=== PATIENT | female | born 1955 | race Caucasian/White ===

== ENCOUNTER 2020-03-08 04:18 | Outpatient (CLI) | payer MEDICARE, SELFPAY ==
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
--- NOTE | 2020-03-08 09:46 | DI.RAD_ITS ---
EXAM: XR HIP RT COMPLETE AP PELVIS CLINICAL HISTORY: right hip pain,M25.551. TECHNIQUE: 2D digital imaging was performed. COMPARISON: No exams were available for comparison FINDINGS: BONES: The patient has a right total hip replacement. No lucencies are seen in or about the orthoped ic hardware. The distal aspect of the femoral stem is not included on this examination. Dystrophic calcifications are seen around the right hip. Note is also made of a left total hip replacement. Th e visualized components are unremarkable. No acute fracture or dislocation is seen. There are moder ate degenerative changes seen in the lower lumbar spine. JOINTS: Please see above. SOFT TISSUE: Normal. IMPRESSION: Bilateral total hip replacements. If there are prior films for comparison, they may be submitted for comparison and an addendum will be issued at that time. DATA REPOSITORY: RADIATION DOSE DELIVERED:
== END 2020-03-08 04:38 ==
PROVIDERS: Visit Provider Nurse Practitioner Family
DX: M25.551 Pain in right hip (principal); Z96.643 Presence of artificial hip joint, bilateral; M79.18 Myalgia, other site
CPT/HCPCS: 76857; 73502

== ENCOUNTER 2020-05-14 14:38 | Outpatient (REF) | payer OTHER, SELFPAY ==
[2020-05-14 22:14] LABS: Bilirubin Negative (Negative); Blood Negative (Negative); Clarity Clear (Clear); Glucose Negative (Negative); Ketones Negative (Negative); Leukocyte Esterase Small (Negative); Nitrite Negative (Negative); Specific Gravity >= 1.030 (1.005-1.025); Urobilinogen 0.2 EU/dL (Up TO 0.2); pH 5.5 (5-8)
[2020-05-14 22:22] LABS: Bacteria Few HPF (Negative); C & S Indicated? Yes; Casts Negative LPF (Negative); Crystals Rare Calcium Oxalate HPF (Negative); Epithelial Cells Few HPF (Negative); Mucus Negative (Negative); RBC Negative HPF (0-2)
== END 2020-05-14 14:58 ==
LOC: LBN 14:38
PROVIDERS: Visit Provider Emergency Medicine
DX: R10.9 Unspecified abdominal pain (principal)
CPT/HCPCS: 81003; 81015; 87086

== ENCOUNTER 2020-05-16 01:56 | Outpatient (CLI) | payer OTHER, SELFPAY ==
--- NOTE | 2020-05-16 11:08 | DI.CT_ITS ---
EXAM: CT RENAL COLIC WO CLINICAL HISTORY: right renal colic,n23. TECHNIQUE: Imaging Protocol: Axial computed tomography images with coronal and sagittal reformatted images were created and reviewed CONTRAST MATERIAL: Intravenous: none Oral: None COMPARISON: No exams were available for comparison FINDINGS: VISUALIZED LUNG BASES: No nodules nor pleural effusions evident. ABDOMEN: There is no ascites. LIVER: There is a partially included hypodensity in the left hepatic lobe which measures 2.6 cm x 2 c m and probably a cyst. No other focal hepatic lesions identified on this limited study. The entire liver is not included on this dedicated renal calculi protocol study. GALLBLADDER/BILIARY: No obvious gallbladder pathology. CBD is not dilated. PANCREAS: No evidence of pancreatic mass nor dilatation of the pancreatic duct. SPLEEN: Not enlarged ADRENALS: No significant adrenal masses KIDNEYS:No intrarenal calculi. No solid renal masses. Parapelvic cyst left kidney noted. No hydron ephrosis. No hydroureter of though the lower ureters and most of the urinary bladder obscured by thiago ateral hip prostheses.. ABDOMINAL AORTA: Abdominal aorta is not enlarged and there is no [id number] adenopat hy. ABDOMINAL WALL/GI: No evidence of significant anterior abdominal wall hernia. No bowel obstruction. PELVIS: LYMPH NODES: There is no intrapelvic nor inguinal adenopathy. GI: No evidence of appendicitis.No evidence of sigmoid diverticulitis. URINARY BLADDER: Partially obscured by artifact from bilateral hip prostheses. REPRODUCTIVE: Partially obscured by a hip prostheses beam hardening artifact. No obvious abnormal ad nexal masses. Uterus difficult to assess. OSSEOUS: Bilateral hip prostheses noted. Evidence of prior lumbar spine decompression surgery. No lytic osseous lesions identified. IMPRESSION: 1. No intrarenal calculi no hydronephrosis nor hydroureter. The lower most ureters and the urinary b ladder are difficult to assess because of beam hardening if artifact from the bilateral hip prosthese s evident. 2. Parapelvic cysts noted in the left kidney. No solid renal masses. 3. Benign cyst in the liver left hepatic lobe partially included in this study and measures 2.6 x 2.0 cm. RADIATION DOSE DELIVERED: 832.03mGy.cm Total DLP DATA REPOSITORY: All CT scans at this facility are submitted to the National Radiology Data Registry (NRDR) Dose Index Registry (DIR) with the [employer] ([employer]). RADIATION OPTIMIZATION: All CT scans at this facility use at least one of these dose optimization te chniques: automated exposure control; mA and/or kV adjustment per patient size (includes targeted exa ms where dose is matched to clinical indication); or iterative reconstruction.
== END 2020-05-16 02:16 ==
PROVIDERS: Visit Provider Emergency Medicine
DX: N23 Unspecified renal colic (principal); N28.1 Cyst of kidney, acquired; K76.89 Other specified diseases of liver
CPT/HCPCS: 74176

== ENCOUNTER 2021-05-15 02:40 | Outpatient (CLI) | payer MEDICARE, SELFPAY ==
--- NOTE | 2021-05-15 14:56 | DI.US_ITS ---
APPROVED REPORT EXAM: Comprehensive 2D, Doppler, and color-flow Echocardiogram Patient Location: Out-Patient Casing Grader: Karla Machado RDCS (AE) Indications: New systolic heart murmur, Preop Other Information Study Quality: Adequate Conclusion Normal left ventricular wall thickness and chamber size. Estimated ejection fraction is 60%. Wall m otion is normal Normal right ventricular size and systolic function Both atria are normal in size The aortic valve is sclerotic and trileaflet with mild regurgitation. There is no aortic stenosis Mild to moderate mitral annular calcification. Trace to mild mitral regurgitation Normal tricuspid valve with trace regurgitation. Estimated right ventricular systolic pressure is no rmal at 25 mmHg Wall motion Left Ventricle The left ventricle is normal size. The left ventricular systolic function is normal. The left ventric ular ejection fraction is within the normal range. Mild concentric left ventricular hypertrophy. Ther e is normal LV segmental wall motion. There is no ventricular septal defect visualized. LVEF is 60%. Right Ventricle The right ventricle is normal size. The right ventricular systolic function is normal. The RVSP is 25 .5mmHg. Atria The left atrium size is normal. The right atrium size is normal. The interatrial septum is intact wit h no evidence for an atrial septal defect. Aortic Valve The Aortic valve is sclerotic. Aortic valve is trileaflet. No hemodynamically significant valvular ao rtic stenosis. Mild aortic regurgitation. Mitral Valve Mild to moderate mitral annular calcification. No evidence of mitral valve stenosis. Trace to mild mi tral regurgitation. Tricuspid Valve The tricuspid valve is normal in structure. There is no tricuspid valve stenosis. Trace tricuspid reg urgitation. Pulmonic Valve The pulmonary valve is normal in structure. There is no pulmonic valvular stenosis. There is no pulmo ely valvular regurgitation. Great Vessels The aortic root is normal in size. The ascending aorta is normal in size. Aortic arch is normal in ca liber. IVC is normal in size and collapses >50% with inspiration. Pericardium There is no pericardial effusion. 2D Dimensions IVSD d PLAX 1.10 cm F: 0.6-1.0 LV Vol A2C d MOD 58.8 mL LVPW d PLAX 1.12 cm F: 0.6 - 1.0 LV Vol A4C d MOD 94.0 mL LVID d PLAX 4.25 cm F: 3.8 - 5.2 LA vol/ BSA A2C s A-L 27.7 mL/m2 LVDs 2.90 cm F: 2.2 - 3.5 LA vol/ BSA A4C s A-L 40.9 mL/m2 Ao Root d 2.45 cm F: 2.7 - 3.3 LA Vol/ BSA Biplane s A-L 33.8 mL/m2 RA Area A4C 12.03 cm2 LA Area A4C s MOD 22.27 cm2 RA Vol/ BSA A4C s A-L 14.8 mL/m2 LA Area A2C s MOD 18.39 cm2 Ao Asc Diam d 3.20 cm F: 2.3 - 3.1 LV EF A4C MOD 58.6 % LV EF Teichholz 59.8 % LV EF A2C MOD 59.3 % LVEF (Delaney's) 58.35 % F: 54 - 74 LV EF Biplane MOD 58.4 % LV Volume 59.11 mL F: 46 - 106 SV 44.76 mL LV Volume Index 32.12 mL/m2 F: 29 - 61 SV Index 24.22 mL/m2 LV Vol Biplane MOD 76.7 mL FS 31.55 % M-Mode TAPSE 2.57 cm (M/F) >1.7 LV Diastology MV E' medial 0.134 (>0.07 m/s) E/A Ratio 0.9 LV E/e MED 6.00 (<14) MV E Vmax 0.81 (0.4-1.3 m/s) MV E' lateral 0.094 (>0.1 m/s) MV A Vmax 0.90 (0.4-1.3 m/s) LV E/e LAT 8.55 (<14) MV E/A Ratio 0.88 MV E/E' medial 6.02 MV E/E' lateral 8.59 Aortic Valve LVOT Area 3.13 cm2 AoV Area Vmax 1.68 cm2 LVOT Vmax 1.24 m/s AoV Area/ BSA (Vmax) 0.91 cm2/m2 LVOT Mean Chris. 0.85 m/s GONZALEZ Mean Chris. 1.61 cm2 LVOT Peak Grad 6.2 mmHg GONZALEZ Mean Chris. Index 0.87 cm2/m2 LVOT Mean Grad 3.3 mmHg AR DT 1411 msec LVOT VTI 0.277 m AR PHT 409 msec LVOT Diam s 1.95 cm AoV Vmax 2.32 m/s Velocity Ratio 0.53 AoV Mean Chris. 1.66 m/s AoV Peak Grad 21.5 mmHg LVOT SV 86.75 mL AoV Mean Grad 12.4 mmHg AoV VTI 0.474 m AoV Area VTI 1.83 cm2 AoV Area/ BSA (VTI) 0.99 cm/m2 Mitral Valve MV DT 207 (160-240 msec) MV PHT 60 msec MV Area PHT 3.66 cm2 MV VTI 0.301 m MV Area VTI 2.88 (4.0-6.0 cm2) Pulmonary Valve PV Vmax 1.01 (0.5-1.5 m/s) RVOT Peak Gr. 1.51 mmHg PV Peak Grad 4.1 mmHg RVOT Mean Gr. 0.80 mmHg PV Mean Grad 2.1 mmHg RVOT VTI 0.132 m PV VTI 0.184 m RVOT Vmax 0.61 m/s Tricuspid Valve TR Peak Grad 22.4 mmHg TR Vmax 2.37 m/s RA Pressure 3.00 mmHg RVSP (TR) 25.5 mmHg
== END 2021-05-15 03:00 ==
PROVIDERS: PCP Family Medicine; Visit Provider Family Medicine
DX: Z01.818 Encounter for other preprocedural examination (principal); R01.1 Cardiac murmur, unspecified; I08.3 Combined rheumatic disorders of mitral, aortic and tricuspid valves
CPT/HCPCS: 93306

== ENCOUNTER 2022-06-03 15:09 | Outpatient (REF) | payer MEDICARE, SELFPAY ==
[2022-06-03 21:15] LABS: HCT 44.4 % (36.0-46.0); HGB 14.8 g/dL (11.2-15.7); MCH 31.7 pg (27.0-33.0); MCHC 33.3 % (32.0-36.0); MCV 95 fL (80-95); Platelet Count 260 10^3/uL (130-400); RBC 4.67 10^6/uL (3.93-5.22); RDW 12.1 % (11.7-14.6); RDW-SD 42.3 fL; WBC 6.73 10^3/uL (4.4-10.8)
[2022-06-03 21:38] LABS: ALT 30 U/L (14-59); AST 21 U/L (15-37); Alkaline Phosphatase 75 U/L (46-116); Anion Gap 8.6 mmol/L (3-11); BUN 15 mg/dL (7-18); Bilirubin, Total 0.4 mg/dL (0.2-1.0); CO2 27.4 mmol/L (21.0-32.0); CREATININE 0.7 mg/dL (0.55-1.02); Calcium 9.3 mg/dL (8.5-10.1); Calculated LDL 139 mg/dL (<100); Chloride 109 mmol/L (98-107); Cholesterol 230 mg/dL (<200); Estimated GFR 94.15 (mL/min/1.73m2); Glucose 99 mg/dL (74-106); HDL Cholesterol 62 mg/dL (40-60); Sodium 145 mmol/L (136-145); Total Protein 6.7 g/dL (6.4-8.2); Triglyceride 146 mg/dL (<150)
== END 2022-06-03 15:10 | disposition home or self-care (01) ==
LOC: NCHCN 15:09
PROVIDERS: Visit Provider Family Medicine
DX: R78.89 Finding of other specified substances, not normally found in blood (principal); I70.0 Atherosclerosis of aorta; K21.9 Gastro-esophageal reflux disease without esophagitis; M15.9 Polyosteoarthritis, unspecified
CPT/HCPCS: 80053; 80061; 85027

== ENCOUNTER 2022-07-13 14:01 | Outpatient (CLI) | payer MEDICARE, SELFPAY ==
--- NOTE | 2022-07-13 14:00 | RT.EKG_ITS ---
APPROVED REPORT Exam: Resting ECG Reason for Exam: chest discomfort Patient Location: O HR:74 bpm ECG Measurements Heart Rate 74 AXIS LA 148 P 62 QRSd 92 QRS 17 QT 394 T 34 QTc 438 Conclusion Sinus rhythm...normal P axis, V-rate 50- 99 Probable left atrial enlargement...P >50mS, <-0.10mV V1 Otherwise normal ECG
== END 2022-07-13 14:02 | disposition home or self-care (01) ==
LOC: DI.CM 14:02
PROVIDERS: Visit Provider Physician Assistant
DX: R07.89 Other chest pain (principal)
CPT/HCPCS: 93010

== ENCOUNTER 2022-07-13 14:34 | Outpatient (CLI) | payer MEDICARE, SELFPAY ==
--- NOTE | 2022-07-13 14:15 | DI.RAD_ITS ---
Exam(s) XR CHEST 2V PA LATERAL EXAM: XR CHEST 2V PA LATERAL CLINICAL HISTORY: cough, SOB R05.9 TECHNIQUE: 2D digital imaging was performed. COMPARISON: No exams were available for comparison FINDINGS: HEART: Normal size. Aorta: Not dilated. PULMONARY VASCULATURE: Normal. LUNGS: Clear. PLEURAL SPACE: No pleural effusion or pneumothorax. BONE:Unremarkable for age. IMPRESSION: No acute abnormality. DATA REPOSITORY: RADIATION DOSE DELIVERED:
== END 2022-07-13 14:54 ==
LOC: DI 14:34
PROVIDERS: Visit Provider Physician Assistant
DX: R05.8 Other specified cough (principal)
CPT/HCPCS: 71046

== ENCOUNTER 2022-12-29 08:56 | Outpatient (REF) | payer MEDICARE, SELFPAY | END 2022-12-29 08:57 | disposition home or self-care (01) | LOC: NCHCN 08:56 | PROVIDERS: Visit Provider Family Medicine | DX: R30.0 Dysuria (principal); R50.9 Fever, unspecified | CPT/HCPCS: 87077; 87086; 87186 ==

== ENCOUNTER 2023-01-08 22:10 | Outpatient (REF) | payer MEDICARE, SELFPAY ==
[2023-01-08 21:38] LABS: Bacteria Rare HPF (Negative); Casts Negative LPF (Negative); Crystals Negative HPF (Negative); Epithelial Cells Rare HPF (Negative); Mucus Negative (Negative); RBC 0-2 HPF (0-2); WBC 0-2 HPF (0-5)
[2023-01-08 21:39] LABS: C & S Indicated? C&S Done As Ordered
== END 2023-01-08 22:11 | disposition home or self-care (01) ==
LOC: LBN 22:10
PROVIDERS: Visit Provider Physician Assistant Medical
DX: R39.15 Urgency of urination (principal)
CPT/HCPCS: 81015; 87086

== ENCOUNTER 2023-01-12 16:00 | Outpatient (REF) | payer MEDICARE, SELFPAY | END 2023-01-12 16:01 | disposition home or self-care (01) | LOC: NCHCN 16:00 | PROVIDERS: Visit Provider Nurse Practitioner Family | DX: R30.0 Dysuria (principal) | CPT/HCPCS: 87086 ==

== ENCOUNTER 2023-01-21 12:25 | Outpatient (REF) | payer MEDICARE, SELFPAY ==
[2023-01-21 21:12] LABS: HCT 44.5 % (36.0-46.0); HGB 14.3 g/dL (11.2-15.7); MCH 30.8 pg (27.0-33.0); MCHC 32.1 % (32.0-36.0); MCV 96 fL (80-95); MPV 9.9 fL (8.0-11.0); Platelet Count 280 10^3/uL (130-400); RBC 4.64 10^6/uL (3.93-5.22); RDW 12.7 % (11.7-14.6); RDW-SD 44.9 fL; WBC 6.26 10^3/uL (4.4-10.8)
[2023-01-21 21:14] LABS: Anion Gap 10.7 mmol/L (3-11); BUN 20 mg/dL (7-18); CO2 24.3 mmol/L (21.0-32.0); CREATININE 0.9 mg/dL (0.55-1.02); Calcium 9.8 mg/dL (8.5-10.1); Chloride 104 mmol/L (98-107); Estimated GFR 69.64 (mL/min/1.73m2); Glucose 102 mg/dL (74-106); Potassium 4.2 mmol/L (3.5-5.1); Sodium 139 mmol/L (136-145)
== END 2023-01-21 12:26 | disposition home or self-care (01) ==
LOC: NCHCN 12:25
PROVIDERS: Visit Provider Family Medicine
DX: R10.9 Unspecified abdominal pain (principal)
CPT/HCPCS: 80048; 85027